=== PATIENT | male | born 1960 | race Caucasian/White ===

== ENCOUNTER 2018-03-25 09:18 | Day surgery (SDC) | payer OTHER ==
--- OUTSIDE RECORDS SUMMARY | 2018-03-25 09:28 | XMS REPORT | Clinical Summary ---
:1960 Author Organization [facility] Address [address] [place] [address] Care Team Providers Name Role Phone Murphy Pereira MD Primary Care Provider Allergies No Known Allergies Medications Medication Sig Dispensed Refills Start Date End Date Status ceFAZolin (ANCEF) Inject 50 mLs (2 g 0 03/24/2013 Active IVPB 2 g in dextrose total) intravenously 5% (D5W) 50 mL every 8 (eight) hours. olmesartan (BENICAR) Take 1 tablet (20 mg 30 tablet 11 03/24/2013 Active 20 MG total) by mouth tabletIndications: daily. hypertension Active Problems Problem Noted Date Aortic valve insufficiency, acquired 03/16/2013 Hypertensive heart disease without CHF 03/16/2013 History of hyperlipidemia 03/16/2013 Toxic effect of tobacco 03/16/2013 Septicemia 03/16/2013 Bacterial endocarditis 03/15/2013 Family History Medical History Relation Name Comments Heart disease Father Heart disease Mother Hypertension Mother Relation Name Status Comments Father Mother Social History Tobacco Use Types Packs/Day Years Used Date Current Every Day Smoker 1 30 Smokeless Tobacco: Current User Tobacco Cessation: Ready to Quit: Yes Comments: "Maybe ready to quit" Alcohol Use Drinks/Week oz/Week Comments Yes 10 Shots of liquor 6.0 Sex Assigned at Date Recorded Not on file Job Start Date Occupation Industry Not on file Not on file Not on file Travel History Travel Start Travel End No recent travel history available. Last Filed Vital Signs Not on file Plan of Treatment Health Maintenance Due Date Last Done Comments INFLUENZA VACCINE 11/22/2017 Implants Implanted Type Area Brushing Machine Operator Device Shelf Model / Identifier Expiration Serial / Lot Date Valve,Aortic Hammond Sm Cuff 25mm - [id number] Valves N/A: [employer] 01/26/2017 [id number] / Implanted: Qty: 1 on 03/16/2013 by Mert Houser MD [employer] [id number] / NONE Results Not on fileafter 03/24/2017 Insurance Payer Benefit Plan / Subscriber ID Type Phone Address Group BLUE CROSS/BLUE BCBS PPO POS EPO xxxxxxxxxxxx PPO [phone] [address] [place] [address] [phone] (Work) Advance Directives For more information, please contact:[place] [phone] [place], [place] [phone] Code Status Date Activated Date Inactivated Comments Code ONE 03/16/2013 5:28 PM 03/24/2013 3:10 PM All possible means of support , including: cardiac massage, mechanical ventilation, and defibrillation will be used to support life. Code ONE 03/15/2013 9:25 PM 03/16/2013 5:28 PM All possible means of support including;cardiac massage, mechanical ventilation, and defibrillation will be used to support life. Code ONE 03/15/2013 8:24 PM 03/15/2013 9:25 PM All possible means of support including;cardiac massage, mechanical ventilation, and defibrillation will be used to support life.
[2018-03-25] MEDS ORDERED: Ringers Lactate 1,000 ML IV ONE ×2 (09:43→11:52)
[2018-03-25] MEDS ORDERED: OXYMETAZOLINE HCL 0.05% 15ML NAS ONE ×4 (09:43→10:23)
[2018-03-25] MEDS ORDERED: CEFAZOLIN 2GM (PREMIX IV) 2 GM/50 ML BAG ONE ×2 (09:47→10:35)
[2018-03-25] MEDS ORDERED: FENTANYL CITR 100 MCG/2 ML ONE (10:02)
[2018-03-25] MEDS ORDERED: PROPOFOL 200 MG/20 ML VIAL IV ONE ×2 (10:03→11:47)
[2018-03-25] MEDS ORDERED: GLYCOPYRROLATE 0.2 MG/ML SYR ONE (10:04)
[2018-03-25] MEDS ORDERED: ROCURONIUM 50 MG/5 ML VIAL IV ONE (10:04)
[2018-03-25] MEDS ORDERED: LIDOCAINE 2% MPF 5 ML VIAL ONE (10:05)
[2018-03-25] MEDS ORDERED: DEXAMETHASONE 10 MG/ML VIAL ONE (10:05)
[2018-03-25] MEDS ORDERED: NEOSTIGMINE 1 MG/ML -10 ML VIAL ONE (10:07)
[2018-03-25] MEDS ORDERED: ONDANSETRON 4 MG/2 ML VIAL ONE (10:07)
[2018-03-25 10:15] LABS: Protime INR 1.05
[2018-03-25] MEDS ORDERED: NA CHLORIDE 0.9% 500 ML ONE (10:24)
[2018-03-25] MEDS ORDERED: NS 0.9% VIAL 10 ML ONE (10:29)
[2018-03-25] MEDS ORDERED: LIDOCAINE 1.5% W/EPI AMP 5 ML ONE (10:47)
[2018-03-25] MEDS: LIDOCAINE 1.5% W/EPI AMP 5 ML ONE ×2 (10:56→10:57)
[2018-03-25] MEDS ORDERED: EPHEDRINE SULF 50 MG/ML VIAL ONE (11:14)
--- NOTE | 2018-03-25 11:43 | P.BOP ---
Preoperative diagnosis: septal deviation, chronic nasal congestion Postoperative diagnosis: same Primary procedure: septoplasty Secondary procedure: inferior turb reduction Gravel Hauler: NONE,NONE Estimated blood loss: 15ml Specimen: none Anesthesia: General Complications: None Implants: Rivas splints Fluids & blood products: crystalloid 1000ml Transferred to: Recovery Room Condition: Good
[2018-03-25] MEDS ORDERED: ALBUTEROL INHALER 60 PUFF/8 GM IH ONE (11:51)
[2018-03-25] MEDS ORDERED: ALBUTEROL 2.5 MG/3 ML NEB SOL ONE (12:12)
[2018-03-25] MEDS: HYDROMORPHONE HCL 1 MG/ML INJ ONE ×2 (12:14→12:19)
[2018-03-25] MEDS: HYDROMORPHONE HCL 2 MG/ML inj ONE ×2 (12:26→12:34)
[2018-03-25] MEDS ORDERED: TRAMADOL HCL 50 MG TAB ONE (13:17)
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
== END 2018-03-25 13:40 | disposition home or self-care (01) ==
LOC: OR 09:18
PROVIDERS: ATTEND Otolaryngology
PROC: 09SM4ZZ Reposition Nasal Septum, Percutaneous Endoscopic Approach (ICD-10-PCS; principal; 2018-03-25 12:15)
DX: J34.2 Deviated nasal septum (principal); R09.81 Nasal congestion; Z72.0 Tobacco use; Z88.6 Allergy status to analgesic agent; Z80.9 Family history of malignant neoplasm, unspecified
CPT/HCPCS: 30520; 30930; 36415; 85610; 94640; J0690; J1100; J1170 ×2; J2001 ×2; J2405; J2704 ×2; J2710; J3010

== ENCOUNTER 2021-10-23 19:44 | Inpatient (IN) | payer OTHER ==
--- OUTSIDE RECORDS SUMMARY | 2021-10-23 19:47 | XMS REPORT | Continuity of Care Document ---
:1960 Author Organization [facility] t Address [address] [place] [address] Care Team Providers Name Role Phone LUDWIN MERRITT Primary Care Physician Unavailable ROBIN BANKS I. Attending Clinician Unavailable ADAN Attending Clinician Unavailable Carlos Alberto_Birgit Attending Clinician Unavailable A_Byrd Attending Clinician Unavailable REBECCA SOLIS Attending Clinician Unavailable ROBIN BANKS I. Admitting Clinician Unavailable ADAN Admitting Clinician Unavailable Ramana Admitting Clinician Unavailable A_Kenny Admitting Clinician Unavailable Payers Payer Name Policy Type Policy Number Effective Date Expiration Date S reyes MEDICARE A B [id number] 2017 00:00:00 BCBS PPO POS EPO [id number] 2013 2013 CHOICE 00:00:00 00:00:00 [place]IC[place] B-[place]: [id number] 2017 [employer] 00:00:00 Problems Condition Condition Condition Status Onset Resolution Last Treating Co mments Source Name Details Category Date Date Treatment Clinician Date Bilateral Bilateral Problem Active L[facility] nadeen cataracts Cataracts 4-19 Fami ly 00:00: Practic 00 e Hyperlipid Hyperlipid Problem Active [facility] emia emia 8-17 Family 00:00: Practic 00 e Macrocytos Macrocytos Problem Active [facility] is is 8-17 Family 00:00: Practic 00 e Microalbum Microalbum Problem Active [facility] inuria inuria 8-17 Family 00:00: Practic 00 e Thyroid Thyroid Problem Active [facility] function Function 8-17 Family tests Tests 00:00: Practic abnormal Abnormal 00 e Malignant Malignant Problem Active [facility]oco nadeen tumor of Tumor of 8-13 Family prostate Prostate 00:00: Practi c 00 e Type 2 Type 2 Problem Active [facility] diabetes Diabetes 8-13 Family mellitus Mellitus 00:00: Practi c 00 e Morbid Morbid Problem Active [facility] obesity Obesity 8-13 Family 00:00: Practic 00 e Foot Foot Problem Active [facility] callus Callus 8-13 Family 00:00: Practic 00 e History of History of Problem Active [facility] aortic Aortic 813 Family valve Valve 00:00: Practic replacemen Replacemen 00 e t t Testicular Testicular Disease Active [facility] abscess abscess [facility] Center Adenomatou Adenomatou Disease Active M ethodi s polyp of s polyp of 6-25 st descending descending 00:00: Ho spita colon colon 00 l Alcohol Alcohol Problem Active [place] dependence Dependence 09-28 da 00:00: Medical 00 Group Abscess of Abscess of Problem Active [facility] skin Skin 8 da AND/OR AND/OR 00:00: Medical subcutaneo Subcutaneo 00 Gr oup us tissue us Tissue Cigarette Cigarette Problem Active [facility] [place] smoker Smoker 8 da 00:00: Medical 00 Group History of History of Problem Active [facility] artificial Artificial 8 da heart Heart 00:00: Medical valve Valve 00 Group Aortic Aortic Disease Active [facility] valve valve 03[facility]16 [facility] insufficie insufficie 00:00: Me dical ncy, ncy, 00 Center acquired acquired Hypertensi Hypertensi Disease Active [facility] ve heart ve heart 03-16 [facility] disease disease 00:00: Medical without without 00 Center CHF CHF History of History of Disease Active [facility] hyperlipid hyperlipid 03-16 [facility] k[facility] emia emia 00:00: Medical 00 Center Toxic Toxic Disease Active [facility] effect of effect of 03-16 [facility] tobacco tobacco 00:00: Medical 00 [place] Septicemia Septicemia Disease Active [facility] 03[facility]16 [facility] 00:00: Medical 00 [place] Bacterial Bacterial Disease Active [facility]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 03-15 [facility] is is 00:00: Medical 00 Center Allergies, Adverse Reactions, Alerts Allergy Allergy Status Severity Reaction(s) Onset Inactive Treating Comm ents Source Name Type Date Date Clinician Hydrocod Propensi Active Itching Metho di one ty to 08-17 adverse 00:00: Hospita reaction 00 l s to drug Codeine Propensi Active Itching Method i ty to 07-23 adverse 00:00: Hospita reaction 00 l s to drug Hydrocod Allergy Active [facility] [place] one to Family substanc Practic e e NO KNOWN Allergy Active [facility] Family History Family Member Diagnosis Comments Start Date Stop Date Source Natural father Heart disease [facility] Natural mother Heart disease [facility] Natural mother Hypertension [facility] Social History Social Habit Start Date Stop Date Quantity Comments Source Alcohol intake 2019-08-31 2019-08-31 [facility]:00 of alcohol [facility] (finding) Cigarettes smoked 2013-03-15 2013-03-[address] [facility] current (pack per 00:00:00 00:00:00 Medical Center day) - Reported Cigarette 2013-03-15 2013-03-[address] [facility] pack-years 00:00:00 00:00:00 [facility] Tobacco use and 2013-03-15 2013-03-[address] [facility] exposure 00:00:00 00:00:00 [facility] Tobacco Comment 2013-03-15 2013-03-15 "Maybe ready to [facility] 00:00:00 00:00:00 quit" [facility] Sex Ass[birth year] At [birth year] [employer] 00:00:00 00:00:00 Hospital Smoking Status Start Date Stop Date Source Tobacco smoking consumption [facility] unknown Light Tobacco Smoker [facility] Current every day smoker 2013-03-15 00:00:00 [facility] Medications Ordered Filled Start Stop Current Ordering Indication Dosage Frequency Signature Comments Components Source Medication Medication Date Date Medication? Clinician (SIG) Name Name enoxaparin Yes Inject [facility] sodium 08-30 [facility]o [facility] (LOVENOX 18:39: usly. Medical SUBQ) [address] [place] [address] warfarin Yes Take by [facility] sodium - mouth. [facility] (WARFARIN 18:39: Medical ORAL) Center sertraline Yes Take by [facility] HCl (ZOLOFT 08-30 mouth. [facility]ukes ORAL) 18:39: Medical Center sertraline Yes 100mg QD Take 100 Me thodi (ZOLOFT) 6-[address] 100 MG 09:31: mouth Hospita tablet 33 daily. l warfarin Yes Q24H daily. Methodi (COUMADIN) 6- st 10 MG 09:30: Hospita tablet 27 l ceFAZolin Yes 2g Inject [address] (ANCEF) 1-31 mLs (2 g [facility] IVPB 2 g in 00:00: total) Medi dedire dextrose 5% 00 intravenou Ce nter (D5W) 50 mL sly every 8 (eight) hours. olmesartan Yes hypertensio 20mg QD Take [address] (BENICAR) 1-31 n tablet (20 Luke s 20 MG 00:00: mg total) Medical tablet 00 by mouth Center daily. warfarin 10 warfarin 10 No 1 Q1D warfarin [facility] mg tablet 1 mg tablet 1 1-15 10 mg Family tablet tablet 00:00: tablet 1 Pract ic every day every day 00 tablet e by oral by oral every day route. route. by oral route. paroxetine paroxetine No paroxetine [place] HCl HCl HCl [facility] quetiapine quetiapine No quetiapine [facility] warfarin 10 warfarin 10 No 1 Q1D warfarin [place] mg tablet mg tablet 10 mg da Take 1 Take 1 tablet Medical tablet tablet Take 1 Group every day every day tablet by oral by oral every day route. route. by oral route. Dexcom G6 Dexcom G6 No Dexcom G6 [place] Sensor Sensor Sensor Family device Take device Take device Practic 3 devices 3 devices Take 3 e every month every month devices by miscell. by miscell. every route for route for month by 30 days. 30 days. miscell. route for 30 days. erythromyci erythromyci No erythromyc [facility] n 5 mg/gram n 5 mg/gram in 5 F amily (0.5 %) eye (0.5 %) eye mg/gram Practic ointment ointment (0.5 %) e APPLY 1 APPLY 1 eye APPLICATION APPLICATION ointment TO EYELIDS TO EYELIDS APPLY 1 AT BEDTIME AT BEDTIME APPLICATIO FOR 1 WEEK FOR 1 WEEK N TO EYELIDS AT BEDTIME FOR 1 WEEK OneTouch OneTouch No 2strip( Q1D [facility] Verio test Verio test s) Verio test Family strips Take strips Take strips Practic 2 strips 2 strips Take 2 e every day every day strips by miscell. by miscell. every day route. route. by miscell. route. Serapine Serapine No Serapine [facility]en one daily one daily one daily Family Practic e Immunizations Ordered Immunization Filled Immunization Date Status Commen ts Source Name Name COVID-19, mRNA, COVID-19, mRNA, 2020-08-06 Completed [facility] Family LNP-S, PF, 100 LNP-S, PF, 100 00:00:00 Practi ce mcg/0.5 mL dose mcg/0.5 mL dose (Moderna) (Moderna) Vital Signs Vital Name Observation Time Observation Value Comments Source HEIGHT 2019-08-18 00:00:00 167.6 cm WEIGHT 2019-08-18 00:00:00 128.685 kg HEIGHT 2019-08-18 00:00:00 167.6 cm WEIGHT 2019-08-18 00:00:00 128.685 kg BP Diastolic 2021-06-10 00:00:00 84 mm[Hg] [facility] Height 2021-06-10 00:00:00 66 [in_i] [facility] BMI (Body Mass 2021-06-10 00:00:00 40.4 kg/m2 [facility] Family Index) Practice BP Systolic 2021-06-10 00:00:00 141 mm[Hg] [facility] Body Weight 2021-06-10 00:00:00 250 [lb_av] [facility] Practice BP Diastolic 2020-10-04 00:00:00 99 mm[Hg] [facility] Height 2020-10-04 00:00:00 66 [in_i] [facility] Practice BMI (Body Mass 2020-10-04 00:00:00 41.2 kg/m2 [facility] Family Index) Practice BP Systolic 2020-10-04 00:00:00 150 mm[Hg] [facility] Body Weight 2020-10-04 00:00:00 255 [lb_av] [facility] HEIGHT 2019-08-18 00:00:00 167.6 cm WEIGHT 2019-08-18 00:00:00 128.685 kg BP Diastolic 2018-05-10 00:00:00 84 mm[Hg] [facility] Height 2018-05-10 00:00:00 66 [in_i] [facility] BMI (Body Mass 2018-05-10 00:00:00 39.6 kg/m2 [facility] 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 Plan of Care Planned Activity Planned Date Details Comments Source Future Scheduled 2023-08-[address] [facility] Test 00:00:00 (combo) [code = CT Medical C enter Colonography (combo)] Future Scheduled 2023-08-[address] [facility] Test 00:00:00 malignant neoplasm of Medica l Center colon (procedure) [code = 527400132] Future Scheduled 2021-10-23 INFLUENZA VACCINE (#1) [facility] Test 00:00:00 [code = INFLUENZA Medical Ce nter VACCINE (#1)] Future Scheduled 2021-10-18 COVID-19 VACCINE (#1) [facility] Test 06:47:21 [code = COVID-19 VACCINE (#1)] Future Scheduled 2021-10-18 Pneumococcal Vaccine: [facility] Test 06:47:21 Pediatrics (0 to 5 Years) and At-Risk Patients (6 to 64 Years) (1 - PCV) [code = Pneumococcal Vaccine: Pediatrics (0 to 5 Years) and At-Risk Patients (6 to 64 Years) (1 - PCV)] Future Scheduled 2021-10-18 Hepatitis C screening [facility] Test 06:47:21 (procedure) [code = 662992302] Future Scheduled 2021-10-18 COLONOSCOPY SCREENING [facility] Test 06:47:21 [code = COLONOSCOPY SCREENING] Future Scheduled 2021-10-18 SHINGLES VACCINES (1 Met [facility] Test 06:47:21 of 2) [code = SHINGLES VACCINES (1 of 2)] Future Scheduled 2021-10-18 INFLUENZA VACCINE Method [facility] Test 06:47:21 [code = INFLUENZA VACCINE] Future Scheduled 2021-10-18 HEPATITIS B VACCINES Met [facility] Test 06:47:21 (1 of 3 - 3-dose series) [code = HEPATITIS B VACCINES (1 of 3 - 3-dose series)] Diagnostic Test 2021-06-10 hemoglobin A1C, [facility] F amily Pending 00:00:00 fingerstick [code = Practice hemoglobin A1C, fingerstick] Diagnostic Test 2021-06-10 glucose, fingerstick, [facility] Family Pending 00:00:00 blood [code = glucose, Pract ice fingerstick, blood] Future Scheduled 2021-02-[address] [facility] Test 00:00:00 (12+) [code = Medical Center DEPRESSION SCREENING (12+)] Future Scheduled 2018-12-[address] [facility] [facility] Test 00:00:00 WELLNESS (YEAR 2 or Medical Center FIRST YEAR if no IPPE) [code = MEDICARE ANNUAL WELLNESS (YEAR 2 or FIRST YEAR if no IPPE)] Future Scheduled 2016-03-[address] [facility] Test 00:00:00 (procedure) [code = Medical Center 92768919] Future Scheduled 2009-10-09 SHINGLES VACCINES ([address] [facility] Test 00:00:00 of 2) [code = SHINGLES Medic al Center VACCINES (1 of 2)] Future Scheduled 1978-10-09 DTAP/TDAP/TD VACCINES [facility] Test 00:00:00 (1 - Tdap) [code = Medical C enter DTAP/TDAP/TD VACCINES (1 - Tdap)] Future Scheduled 1977-10-09 HEPATITIS C SCREENING [facility] Test 00:00:00 [code = HEPATITIS C Medical Center SCREENING] Future Scheduled 1965-10-[address] [facility] Test 00:00:00 0-64 YRS (1 - PCV) Medical C enter [code = PNEUMOCOCCAL VACCINE 0-64 YRS (1 - PCV)] Future Scheduled 1960-04-11 COVID-19 VACCINE (#1) [facility] Test 00:00:00 [code = COVID-[address] VACCINE (#1)] Future Scheduled [address] [facility] Test 00:00:00 malignant neoplasm of Medica l Center colon (procedure) [code = 545064680] Future Scheduled [address] Test 00:00:00 malignant neoplasm of Medica l Center colon (procedure) [code = 618326109] Future Scheduled [address] Test 00:00:00 malignant neoplasm of Medica l Center colon (procedure) [code = 214514945] Future Scheduled 1960 Sigmoidoscopy [code = [facility] Test 00:00:00 Sigmoidoscopy] Medical Roseann wilson Future Appointment 2021-12-10 Malik Carcamo, [address] [facility] 00:00:00 Chemo Otto; Practice [address], [place] [address] Encounters Start End Encounter Admission Attending Care Care Encounter Source Date/Time Date/Time Type Type Clinicians Facility Department ID 2020-11-26 [facility] Surgery [id number] [facility] 23:10:37 ROBIN 2020-11-26 [facility] Surgery [id number] [facility] 22:00:01 ROBIN 2020-11-26 [facility] Surgery [id number] [facility] 20:55:00 ROBIN 2021-09-23 2021-09-23 Outpatient TERELLE[facility]LANDEN [facility] [address] [place] 00:00:00 00:00:00 N 0802 da [facility] Outre h Program 2021-06-23 2021-06-23 Outpatient Carlos Alberto_Birgit VFP [facility] [id number] [facility] 06:24:00 06:24:00 [id number] Family Practic e 2021-06-10 2021-06-10 Outpatient Carlos Alberto_Birgit VFP [facility] [id number] 20 [facility] 02:32:00 02:32:00 [id number] Family Practic e 2021-06-10 2021-06-10 Malik VFP [place] - [id number] [facility] 00:00:00 00:00:00 [facility] Family CarcamoYogi MD: [id number] SHAUNGETACHEW_Matias marques [facility], [address], [place] [address] , Ph. 2021-06-05 2021-06-05 Outpatient Daniel_T VFP VFP [id number] [address] [place] [address] 11:43:00 11:43:00 [id number] Family Practic e 2021-01-15 2021-01-15 Outpatient Daniel_T VFP VFP [id number] [address] [place] [address] 02:31:00 02:31:00 [id number] Family Practic e 2020-12-05 2020-12-05 Outpatient Daniel_T VFP VFP [id number] [address] [place] [address] 08:12:00 08:12:00 [id number] Family Practic e 2020-10-08 2020-10-08 Outpatient Daniel_T VFP VFP [id number] [address] [place] [address] 10:59:00 10:59:00 [id number] Family Practic e 2020-10-04 2020-10-04 Outpatient Daniel_T VFP VFP [id number] [address] [place] [address] 01:31:00 01:31:00 [id number] Family Practic e 2020-10-04 2020-10-04 Malik VFP [place] - [id number] V [facility] 00:00:00 00:00:00 [facility] Family CarcamoYogi MD: [id number] FIDE_Matias marques [facility], [address], [place] [address] , Ph. 2020-10-02 2020-10-02 Outpatient Daniel_T VFP VFP [id number] [address] [place] [address] 04:48:00 04:48:00 [id number] Family Practic e 2020-09-30 2020-09-30 Outpatient Daniel_T VFP VFP [id number] [address] [place] [address] 03:08:00 03:08:00 [id number] Family Practic e 2020-01-10 2020-01-10 [id number] [place] 02:27:00 02:27:00 [id number] 2019-08-30 2019-08-30 Outpatient SLE SLE [id number] [facility] 00:00:00 00:00:00 2019-08-17 2019-08-17 Outpatient IRMA, [facility] [id number] [facility] 00:00:00 00:00:[address] ALI [address] 2018-05-10 2018-05-10 Jose Armando [facility] [place] - [id number] M at[facility]eve 00:00:00 00:00:00 Orlando Palumbo MD: Medical Medica [address], General [address], [place] [address] , Ph. [phone] Results Test Description Test Time Test Comments Results Result Comments Source Hemoglobin A1c measurement device panel 2021-06-10 13:43:21 Test Item Value Reference Range Interpretation Comme nts Hemoglobin A1C Fingerstick: (test code = Hemoglobin A1C Fingerstick :) 6.1 [facility] [id number] 13:43:21 Test Item Value Reference Range Interpretation Comments Hemoglobin A1C Fingerstick: (test code 6.1 = Hemoglobin A1C Fingerstick:) [facility]/volume] in Capillary [id number] 13:40:40 Test Item Value Reference Range Interpretation Comments Blood Glucose: mg/dl (test code = Blood 200 Glucose: mg/dl) [facility]/volume] in Capillary [id number] 13:40:40 Test Item Value Reference Range Interpretation Comments Blood Glucose: mg/dl (test code = Blood 200 Glucose: mg/dl) [facility] [id number] 18:22:00 Test Item Value Reference Range Interpretation Comments CULTURE (BEAKER) (test No anaerobes isolated code = 1095) TISSUE [id number] 12:30:00Surgical Pathology Report Case: [id number] Authorizing Provider: Robin Banks MD Collected: 08/31/2019 04:29 PM Ordering Location: [facility] Received: 09/01/2019 08:43 AM SERVICES Pathologist: Lizandro Chapman MD Specimen: Scrotum, LEFT SCROTAL ABCESS TRACT A. SCROTUM, LEFT ABSCESS TRACT, EXCISION: - INFLAMED GRANULATION TISSUE AND ORGANIZING ABSCESS - NEGATIVE FOR MALIGNANCY Signing Pathologist Direct Phone Line: [phone] signed by Lizandro Chapman MD on 09/04/2019 at 12:30 [id number] ScrotumReceived in formalin labeled with the patient's name, accession number and "left scrotal abscess tract" is a 2.9 x 2.0 x 0.5 cm portion of dusky saavedra-pink, previously disrupted skin and soft tissue. Sectioning reveals a 1.3 x 0.4 cm possible abscess tract. Rum Processing Operator sections are submitted in A1.SHADIA Jordan (ASCP)cmPerformed.SURGICALLY OBTAINED CULTURE + GRAM [id number] 13:20:00 Test Item Value Reference Range Interpretation Comments CULTURE (BEAKER) A 2+ Viridans (test code = Streptococcus 1095) GRAM STAIN <1+ White blood RESULT (BEAKER) cells seen (test code = 1123) GRAM STAIN No organisms seen RESULT (BEAKER) (test code = 72782) BASIC METABOLIC [id number] 12:04:00 Test Item Value Reference Range Interpretation Comments SODIUM (BEAKER) 139 meq/L 136-145 (test code = 381) POTASSIUM (BEAKER) 4.1 meq/L 3.5-5.1 (test code = 379) CHLORIDE (BEAKER) 104 meq/L 98-107 (test code = 382) CO2 (BEAKER) (test 26 meq/L 22-29 code = 355) BLOOD UREA NITROGEN 10 mg/dL 7-21 (BEAKER) (test code = 354) CREATININE (BEAKER) 0.79 mg/dL 0.57-1.25 (test code = 358) GLUCOSE RANDOM 140 mg/dL 70-105 H (BEAKER) (test code = 652) CALCIUM (BEAKER) 9.4 mg/dL 8.4-10.2 (test code = 697) EGFR (BEAKER) (test 100 mL/min/1.73 ESTIM ATED GFR IS code = 1092) sq m NOT ACCURATE CREATININE CLEARANCE IN PREDICTING GLOMERULAR FILTRATION RATE . ESTIMATED GFR I S NOT APPLICABLE FOR DIALYSIS PATIEN TS. Client Evaluator ID - [id number] TIME/[id number] 11:55:00 Test Item Value Reference Range Interpretation Comments PROTIME (BEAKER) (test code = 13.5 seconds 11.9-14.2 759) INR (BEAKER) (test code = 370) 1.1 <=5.9 Effective 07/20/2018: PT Reference Range ChangeNew: 11.9-14.2 Previous: 11.7- 14.7RECOMMENDED COUMADIN/WARFARIN INR THERAPY RANGESSTANDARD DOSE: 2.0-3.0 Includes: PROPHYLAXIS for venous thrombosis, systemic embolization; TREATMENT for venous thrombosis and/or pulmonary embolus.HIGH RISK: Target INR is 2.5-3.5 for patients wiht mechanical heart valves.[id number] 11:48:00 Test Item Value Reference Range Interpretation Comments HEMOGLOBIN (BEAKER) (test code = 14.5 GM/DL 13.7-17.5 410) Client Evaluator ID - [id number], VIRTUAL COLONOSCOPY, DIAGNOSTIC WITHOUT [id number] 14:15:00FINAL REPORT INDICATION:Colon cancer screening.History of benign neoplasm (tubular adenoma) of the transverse colon and descending colon. TECHNIQUE:CT exam of the colon was performed after insufflation with CO2 via rectal tube. Supine and prone imaging was acquired. Coronal and sagittal reformats were made and reviewed. COMPARISON:None. FINDINGS:The proximal sigmoid colon is collapsed on prone imaging but mildly distended on supine imaging. The transverse colon is collapsed on prone imaging but reasonably distended on supine imaging. Splenic flexure is partially collapsed on supine imaging but reasonably distended on prone imaging. No colonic polyp or mass is demonstrated. Diverticuli of the left colon and proximal sigmoid colon noted. Liver, gallbladder, pancreas, spleen, adrenal glands, kidneys, bladder, prostate are unremarkable. No upper abdominal, retroperitoneal, or pelvic lymphadenopathy is demonstrated. Patient is status post ventral hernia repair with mesh without recurrence. There is atherosclerosis of the abdominal aorta and iliac arteries without aneurysm. No suspicious osseous lesion is demonstrated. There is lower lumbar facet arthropathy severe at L5-S1. IMPRESSION:Suboptimal distention of some of the colon segments. Nonetheless, exam deemed adequate for screening purposes. No suspicious colonic polyp or mass demonstrated. C-RADS category 1. Routine colon cancer screening recommended. Signed: Girish Roger Verified Date/Time: 08/08/2018 14:15:06 Reading Location: [facility] Diagnostic Imaging Reading Room - [place] [address]
--- NOTE | 2021-10-23 21:14 | RAD REPORT ---
EXAM DESCRIPTION: RAD - Chest Single View - 10/23/2021 8:58 pm CLINICAL HISTORY: COUGH Chest pain. COMPARISON: CHEST SINGLE VIEW dated 02/24/2014 FINDINGS: Portable technique limits examination quality. Mild interstitial pulmonary edema seen. The heart is normal in size. Sternotomy wires present. IMPRESSION: Mild CHF.
--- NOTE | 2021-10-23 21:31 | EDPHYS ---
Physician Documentation [facility] Name: Mustapha Carcamo Age: 61 yrs Sex: Male : 1960 Arrival Date: 10/23/2021 Time: 19:48 Bed 13 Private MD: MARY Physician Chandra Tovar HPI: 10/23 21:23 This 61 yrs old Male presents to ER via Ambulatory with complaints of Post jaylon Surgical Bleeding. 21:23 The patient presents with scrotal pain, swelling, tenderness, that is moderate. Onset: jaylon The symptoms/episode began/occurred 2 day(s) ago. Modifying factors: The symptoms are alleviated by nothing, the symptoms are aggravated by nothing. Associated signs and symptoms: The patient has no apparent associated signs or symptoms. Severity of symptoms: At their worst the symptoms were moderate, in the emergency department the symptoms are unchanged. The patient has not experienced similar symptoms in the past. Historical: - Allergies: 20:05 No Known Allergies; ll3 - Home Meds: 20:05 warfarin 10 mg Oral tab 1 tab once daily [Active]; ll3 - PSHx: 20:05 Mechanical Heart Valve; ll3 - Immunization history:: Client reports receiving the 2nd dose of the Covid vaccine. - Social history:: Smoking status: Patient reports the use of cigarette tobacco products, smokes one pack cigarettes per day. - Family history:: not pertinent. ROS: 21:23 Constitutional: Negative for fever, chills, and weight loss, Eyes: Negative for injury, jaylon pain, redness, and discharge, ENT: Negative for injury, pain, and discharge, Neck: Negative for injury, pain, and swelling, Cardiovascular: Negative for chest pain, palpitations, and edema, Respiratory: Negative for shortness of breath, cough, wheezing, and pleuritic chest pain, Abdomen/GI: Negative for abdominal pain, nausea, vomiting, diarrhea, and constipation, Back: Negative for injury and pain, MS/Extremity: Negative for injury and deformity, Skin: Negative for injury, rash, and discoloration, Neuro: Negative for headache, weakness, numbness, tingling, and seizure, Psych: Negative for depression, anxiety, suicide ideation, homicidal ideation, and hallucinations, Allergy/Immunology: Negative for hives, rash, and allergies, Endocrine: Negative for neck swelling, polydipsia, polyuria, polyphagia, and marked weight changes, Hematologic/Lymphatic: Negative for swollen nodes, abnormal bleeding, and unusual bruising. 21:23 : Positive for testicular pain of the right testicle. Exam: 21:23 Constitutional: This is a well developed, well nourished patient who is awake, alert, jaylon and in no acute distress. Head/Face: Normocephalic, atraumatic. Eyes: Pupils equal round and reactive to light, extra-ocular motions intact. Lids and lashes normal. Conjunctiva and sclera are non-icteric and not injected. Cornea within normal limits. Periorbital areas with no swelling, redness, or edema. ENT: Nares patent. No nasal discharge, no septal abnormalities noted. Tympanic membranes are normal and external auditory canals are clear. Oropharynx with no redness, swelling, or masses, exudates, or evidence of obstruction, uvula midline. Mucous membranes moist. Neck: Trachea midline, no thyromegaly or masses palpated, and no cervical lymphadenopathy. Supple, full range of motion without nuchal rigidity, or vertebral point tenderness. No Meningismus. Chest/axilla: Normal chest wall appearance and motion. Nontender with no deformity. No lesions are appreciated. Cardiovascular: Regular rate and rhythm with a normal S1 and S2. No gallops, murmurs, or rubs. Normal PMI, no JVD. No pulse deficits. Respiratory: Lungs have equal breath sounds bilaterally, clear to auscultation and percussion. No rales, rhonchi or wheezes noted. No increased work of breathing, no retractions or nasal flaring. Abdomen/GI: Soft, non-tender, with normal bowel sounds. No distension or tympany. No guarding or rebound. No evidence of tenderness throughout. Back: No spinal tenderness. No costovertebral tenderness. Full range of motion. Skin: Warm, dry with normal turgor. Normal color with no rashes, no lesions, and no evidence of cellulitis. MS/ Extremity: Pulses equal, no cyanosis. Neurovascular intact. Full, normal range of motion. Neuro: Awake and alert, GCS 15, oriented to person, place, time, and situation. Cranial nerves II-XII grossly intact. Motor strength 5/5 in all extremities. Sensory grossly intact. Cerebellar exam normal. Normal gait. Psych: Awake, alert, with orientation to person, place and time. Behavior, mood, and affect are within normal limits. 21:23 : CVA tenderness, is absent, Male external genitalia: swelling, tenderness, of the right testicle is noted. 21:23 Skin: abscess, that is small, approximately 2 cm(s), that is moderate sized, cellulitis, that is minimal, induration, that is mild is noted, that is moderate is noted, injury, is not appreciated, lesion(s), are not present. 21:23 Neuro: Orientation: is normal, appropriate for stated age, no acute changes, to person, place, time \T\ situation. 22:27 ECG was reviewed by the Attending Physician. [facility] Vital Signs: 20:02 BP 120 / 74; Pulse 104; Resp 18; Temp 98.4(O); Pulse Ox 91% on R/A; Weight 113.4 kg ll3 (R); Height 5 ft. 6 in. (167.64 cm) (R); Pain 0/10; 21:30 BP 124 / 70; Pulse 98; Resp 20; Pulse Ox 92% on R/A; ll3 22:30 BP 111 / 64; Pulse 96; Resp 20; Pulse Ox 92% on R/A; ll3 23:03 Weight 109.91 kg (M); ll3 23:15 BP 136 / 80; Pulse 96; Resp 21; Pulse Ox 92% on R/A; ll3 23:03 Body Mass Index 39.11 (109.91 kg, 167.64 cm) ll3 MDM: 19:57 Patient medically screened. [facility] 21:27 Differential diagnosis: UTI, urinary retention. Data reviewed: vital signs, nurses [facility] notes, lab test result(s), EKG, radiologic studies, plain films, ultrasound. Data interpreted: pvc monitor: rate is 104 beats/min, rhythm is regular, Pulse oximetry: on room air is 91 %. Test interpretation: by ED physician or midlevel provider: ECG, plain radiologic studies. Counseling: I had a detailed discussion with the patient and/or guardian regarding: the historical points, exam findings, and any diagnostic results supporting the discharge/admit diagnosis, lab results, radiology results, the need for further work-up and treatment in the hospital. Physician consultation: Edmund Reyna MD and will see patient in inpatient room, tomorrow. 10/23 20:34 Order name: Basic Metabolic Panel; Complete Time: 22:20 [facility] 10/23 20:34 Order name: CBC with Diff; Complete Time: 21:53 [facility] 10/23 20:34 Order name: LFT's; Complete Time: 22:20 [facility] 10/23 20:34 Order name: Magnesium; Complete Time: 22:20 [facility] 10/23 20:34 Order name: NT PRO-BNP; Complete Time: 22:20 [facility] 10/23 20:34 Order name: PT-INR; Complete Time: 21:46 [facility] 10/23 20:34 Order name: Troponin HS; Complete Time: 22:20 [facility] 10/23 20:34 Order name: XRAY Chest (1 view); Complete Time: 21:46 [facility] 10/23 20:34 Order name: Blood Culture Adult (2) [facility] 10/23 20:34 Order name: Lactate; Complete Time: 22:35 [facility] 10/23 20:34 Order name: Wound Culture [facility] 10/23 20:34 Order name: US Scrotum Testicles; Complete Time: 21:59 [facility] 10/23 22:37 Order name: Ptt, Activated; Complete Time: 23:14 [facility] 10/24 00:11 Order name: SARS-COV-2 Antigen Rapid 10/23 20:34 Order name: EKG; Complete Time: 20:35 [facility] 10/23 20:34 Order name: Cardiac monitoring; Complete Time: 22:20 [facility] 10/23 20:34 Order name: EKG - Nurse/Tech; Complete Time: 22:20 [facility] 10/23 20:34 Order name: IV Saline Lock; Complete Time: 21:24 [facility] 10/23 20:34 Order name: Labs collected and sent; Complete Time: 21:24 [facility] 10/23 20:34 Order name: O2 Per Protocol; Complete Time: 20:44 [facility] 10/23 20:34 Order name: O2 Sat Monitoring; Complete Time: 20:44 [facility] EC:27 Rate is 101 beats/min. Rhythm is irregular. QRS [place] is Normal. [place] interval is normal. jaylon QRS interval is normal. QT interval is normal. No Q waves. T waves are Normal. No ST changes noted. Clinical impression: Atrial Fibrillation and No evidence of ischemia. Administered Medications: 22:00 Discontinued: NS 0.9% 500 ml IV at bolus once jaylon 21:53 Drug: NS 0.9% 500 ml Route: IV; Rate: bolus; Site: right antecubital; ll3 22:07 Follow up: Response: No adverse reaction; IV Status: Order to discontinue infusion; IV ll3 Intake: 100ml 21:53 Drug: Flagyl (metroNIDAZOLE) 500 mg Volume: 100 ml; Route: IVPB; Rate: 200 ml/hr; ll3 Infused Over: 30 mins; Site: right antecubital; 22:28 Follow up: Response: No adverse reaction; IV Status: Completed infusion; IV Intake: ll3 100ml 22:00 Not Given (Duplicate Order): NS 0.9% 1000 ml IV at 125 ml/hr continuous jaylon 22:25 Drug: Lasix (furosemide) 40 mg Route: IVP; Site: right antecubital; ll3 23:58 Follow up: Response: No adverse reaction ll3 22:28 Drug: vancoMYCIN 1.5 grams Route: IVPB; Rate: calculated rate; Site: right antecubital; ll3 23:58 Follow up: Response: No adverse reaction; IV Status: Completed infusion; IV Intake: ll3 250ml 22:36 CANCELLED (Duplicate Order): Lovenox (enoxaparin) 100 mg Sub-Q once jaylon 23:00 Drug: Potassium Chloride 40 mEq Route: PO; ll3 23:58 Follow up: Response: No adverse reaction ll3 23:34 Drug: Heparin ([place] Drip) 12 units/kg/hr - (HEParin 87397 units, D5W 500 ml) ll3 {Co-Signature: lg3 (Mary Moseley RN).} Route: IV; Rate: calculated rate; Site: left hand; 23:35 Drug: Heparin ([place]-Bolus No thrombolytic) - HEParin 60 units/kg {Co-Signature: lg3 ll3 (Mary Moseley RN).} Route: IVP; Site: left hand; 23:58 Follow up: Response: No adverse reaction ll3 23:57 Drug: levofloxacin 750 mg Volume: 150 ml; Route: IVPB; Infused Over: 90 mins; Site: ll3 right antecubital; 23:57 Drug: Potassium Chloride 20 mEq Route: IV; Rate: calculated rate; Site: right ll3 antecubital; 10/24 00:18 Drug: Nicoderm CQ Patch 21 mg/24 hr 21 mg Route: Transdermal; Site: affected area; ll3 Disposition Summary: 10/23/21 21:30 Hospitalization Ordered Hospitalization Status: Inpatient Admission jaylon Condition: Fair jaylon Problem: new jaylon Symptoms: have improved jaylon Bed/Room Type: Standard jaylon Provider: Chad Garcia(10/23/21 22:30) la1 Location: Intensive Care Unit(10/24/21 00:49) cg Room Assignment: 2-(10/24/21 00:49) cg Diagnosis - Cutaneous abscess of other sites - right scrotal jaylon - Cellulitis of groin - scrotal, mons jaylon - Obesity, unspecified jaylon - Hypokalemia jaylon - Presence of prosthetic heart valve - mechanical jaylon - Unspecified combined systolic (congestive) and diastolic (congestive) heart failure jaylon Forms: - Medication Reconciliation Form jaylon - SBAR form jaylon Signatures: Dispatcher [employer] EDMS Chandra Tovar MD MD cha Attema, Lee, KILN CAR REPAIRER-C KILN CAR REPAIRER-Cla1 Jennifer Rabago RN RN Bowen Jenkins RN RN ll3 Mary Moseley RN lg3 Corrections: (The following items were deleted from the chart) 10/23 22:30 21:30 Augie Jackson cha la1 22:36 22:34 Lovenox (enoxaparin) 100 mg Sub-Q once ordered. jaylon jaylon 10/24 00:49 10/23 21:30 Telemetry/MedSurg (Inpatient) jaylon cg 10/24 00:49 10/23 21:30 jaylon cg
--- NOTE | 2021-10-23 21:31 | ER ---
Nurse's Notes [facility] Name: Mustapha Carcamo Age: 61 yrs Sex: Male : 1960 Arrival Date: 10/23/2021 Time: 19:48 Bed 13 Private MD: Diagnosis: Cutaneous abscess of other sites-right scrotal;Cellulitis of groin-scrotal, mons;Obesity, unspecified;Hypokalemia;Presence of prosthetic heart valve-mechanical ;Unspecified combined systolic (congestive) and diastolic (congestive) heart failure Presentation: 10/23 20:02 Chief complaint: Patient states: States had surgery for an abscess on scrotum ll3 yesterday, today the scrotum started bleeding "a lot", c/o itchy eyes, denies any pain at this time. Coronavirus screen: Vaccine status: Patient reports receiving the 2nd dose of the covid vaccine. At this time, the client does not indicate any symptoms associated with coronavirus-19. Ebola Screen: No symptoms or risks identified at this time. Initial Sepsis Screen: Does the patient meet any 2 criteria? No. Patient's initial sepsis screen is negative. Does the patient have a suspected source of infection? No. Patient's initial sepsis screen is negative. Risk Assessment: Do you want to hurt yourself or someone else? Patient reports no desire to harm self or others. Onset of symptoms was October 23, 2021. 20:02 Method Of Arrival: Ambulatory ll3 20:02 Acuity: JACK 3 ll3 Triage Assessment: 20:05 General: Appears uncomfortable, Behavior is calm, cooperative. Pain: Denies pain. ll3 Neuro: Level of Consciousness is awake, alert, obeys commands, Oriented to person, place, time, situation. Respiratory: Respiratory effort is even, unlabored, Respiratory pattern is regular, symmetrical. Derm: Abscess located on groin has purulent drainage, Reports Bleeding "a lot" since SX yesterday on abscess. Historical: - Allergies: 20:05 No Known Allergies; ll3 - Home Meds: 20:05 warfarin 10 mg Oral tab 1 tab once daily [Active]; ll3 - PSHx: 20:05 Mechanical Heart Valve; ll3 - Immunization history:: Client reports receiving the 2nd dose of the Covid vaccine. - Social history:: Smoking status: Patient reports the use of cigarette tobacco products, smokes one pack cigarettes per day. - Family history:: not pertinent. Assessment: 20:08 General: See triage assessment. ll3 Vital Signs: 20:02 BP 120 / 74; Pulse 104; Resp 18; Temp 98.4(O); Pulse Ox 91% on R/A; Weight 113.4 kg ll3 (R); Height 5 ft. 6 in. (167.64 cm) (R); Pain 0/10; 21:30 BP 124 / 70; Pulse 98; Resp 20; Pulse Ox 92% on R/A; ll3 22:30 BP 111 / 64; Pulse 96; Resp 20; Pulse Ox 92% on R/A; ll3 23:03 Weight 109.91 kg (M); ll3 23:15 BP 136 / 80; Pulse 96; Resp 21; Pulse Ox 92% on R/A; ll3 23:03 Body Mass Index 39.11 (109.91 kg, 167.64 cm) ll3 ED Course: 19:48 Patient arrived in ED. wm 19:57 Chandra Tovar MD is Attending Physician. jaylon 20:02 Bowen Jenkins RN is Primary Nurse. ll3 20:05 Triage completed. ll3 20:05 Arm band placed on Patient placed in an exam room, on a stretcher, on pulse oximetry. ll3 21:00 XRAY Chest (1 view) In Process Unspecified. EDMS 21:29 Augie Jackson MD is Hospitalizing Provider. jaylon 21:45 US Scrotum Testicles In Process Unspecified. EDMS 22:30 Chad Garcia MD is Hospitalizing Provider. la1 23:13 Initial lab(s) drawn, by md, sent to lab. First set of blood cultures drawn Second set ll3 of blood cultures drawn. Inserted saline lock: 22 gauge in right antecubital area, using aseptic technique. Blood collected. 23:13 Inserted saline lock: 22 gauge in left hand, using aseptic technique. Blood collected. ll3 Administered Medications: 22:00 Discontinued: NS 0.9% 500 ml IV at bolus once jaylon 21:53 Drug: NS 0.9% 500 ml Route: IV; Rate: bolus; Site: right antecubital; ll3 22:07 Follow up: Response: No adverse reaction; IV Status: Order to discontinue infusion; IV ll3 Intake: 100ml 21:53 Drug: Flagyl (metroNIDAZOLE) 500 mg Volume: 100 ml; Route: IVPB; Rate: 200 ml/hr; ll3 Infused Over: 30 mins; Site: right antecubital; 22:28 Follow up: Response: No adverse reaction; IV Status: Completed infusion; IV Intake: ll3 100ml 22:00 Not Given (Duplicate Order): NS 0.9% 1000 ml IV at 125 ml/hr continuous jaylon 22:25 Drug: Lasix (furosemide) 40 mg Route: IVP; Site: right antecubital; ll3 23:58 Follow up: Response: No adverse reaction ll3 22:28 Drug: vancoMYCIN 1.5 grams Route: IVPB; Rate: calculated rate; Site: right antecubital; ll3 23:58 Follow up: Response: No adverse reaction; IV Status: Completed infusion; IV Intake: ll3 250ml 22:36 CANCELLED (Duplicate Order): Lovenox (enoxaparin) 100 mg Sub-Q once jaylon 23:00 Drug: Potassium Chloride 40 mEq Route: PO; ll3 23:58 Follow up: Response: No adverse reaction ll3 23:34 Drug: Heparin ([place] Drip) 12 units/kg/hr - (HEParin 85847 units, D5W 500 ml) ll3 {Co-Signature: lg3 (Mary Moseley RN).} Route: IV; Rate: calculated rate; Site: left hand; 23:35 Drug: Heparin ([place]-Bolus No thrombolytic) - HEParin 60 units/kg {Co-Signature: lg3 ll3 (Mary Moseley RN).} Route: IVP; Site: left hand; 23:58 Follow up: Response: No adverse reaction ll3 23:57 Drug: levofloxacin 750 mg Volume: 150 ml; Route: IVPB; Infused Over: 90 mins; Site: ll3 right antecubital; 23:57 Drug: Potassium Chloride 20 mEq Route: IV; Rate: calculated rate; Site: right ll3 antecubital; 10/24 00:18 Drug: Nicoderm CQ Patch 21 mg/24 hr 21 mg Route: Transdermal; Site: affected area; ll3 Intake: 10/23 22:07 IV: 100ml; Total: 100ml. ll3 22:28 IV: 100ml; Total: 200ml. ll3 23:58 IV: 250ml; Total: 450ml. ll3 Outcome: 21:30 Decision to Hospitalize by Provider. jaylon 10/24 01:32 Patient left the ED. tw5 Signatures: Dispatcher [employer] EDChandra Gudino MD MD cha Attema, Lee, CUTTING TORCH OPERATOR-C CUTTING TORCH OPERATOR-Cla1 Karina Rhodes Tiffany tw5 Bowen Jenkins RN RN ll3 Mary Moseley RN lg3
[2021-10-23 21:39] LABS: Absolute Lymphocytes (CBC) 1.4 K/uL (0.7-4.9); Hematocrit 42.5 % (39.6-49.0); Lymphocytes % 18.5 % (15.3-44.8); MCV 104.7 fL (80-100); MPV 8.2 fL (7.6-11.3); RBC Red Blood Cell Count 4.06 M/uL (4.33-5.43)
[2021-10-23 21:41] LABS: Protime INR 1.51
[2021-10-23] MEDS ORDERED: NA CHLORIDE 0.9% 250 ML ONE (21:52)
[2021-10-23] MEDS ORDERED: VANCOMYCIN 1 GM/VIAL ONE (21:52)
[2021-10-23] MEDS ORDERED: VANCOMYCIN 500 MG/VIAL ONE (21:52)
[2021-10-23] MEDS ORDERED: NA CHLORIDE 0.9% 500 ML ONE (21:52)
[2021-10-23] MEDS ORDERED: NA CHLORIDE 0.9% 1,000 ML ONE (21:52)
[2021-10-23] MEDS ORDERED: METRONIDAZOLE 500mg IVPB 500 MG/100 ML BAG IV ONE (21:53)
[2021-10-23] MEDS ORDERED: Levofloxacin 750mg IV 750 MG/150 ML BAG IV ONE (21:53)
--- NOTE | 2021-10-23 21:55 | RAD REPORT ---
EXAM DESCRIPTION: US - Scrotum Testicles - 10/23/2021 9:43 pm CLINICAL HISTORY: SWELLING Pain and swelling COMPARISON: No comparisons FINDINGS: The right testicle 3.7 x 2.0 cm. No intratesticular masses or evidence of testicular torsi on. The left testicle 3.2 x 2.9 cm. No intratesticular masses or evidence of testicular torsion. Both epididymides are normal in size and appearance. There is a complex heterogenous fluid collection lateral to the right scrotal sac region measuring 4. 7 x 3.1 cm. This may represent hematoma or abscess. IMPRESSION: No intratesticular mass or testicular torsion findings. Complex fluid collection (4.7 x 3.1 cm) lateral to the right scrotal sac may represent hematoma or ab scess.
[2021-10-23 22:13] LABS: Bilirubin Direct 0.3 mg/dL (0-0.2); Bilirubin Total 0.5 mg/dL (0.2-1.0); Magnesium 1.8 mg/dL (1.8-2.4); Protein, Total 8.3 g/dL (6.4-8.2); Troponin High Sensitivity 14.1 pg/mL (<58.9)
[2021-10-23 22:19] LABS: Potassium 2.8 mmol/L (3.5-5.1)
[2021-10-23] MEDS ORDERED: FUROSEMIDE 40 MG/4 ML VIAL ONE (22:19)
[2021-10-23] MEDS ORDERED: POTASSIUM CL SA 10 MEQ TAB PO ONE (22:52)
[2021-10-23] MEDS ORDERED: KCL 20 MEQ/100 mL IVPB 100 ML IV ONE (22:53)
[2021-10-23] MEDS ORDERED: HEPARIN/D5W 25,000 UNIT/500 ML BAG IV ONE (23:34)
[2021-10-23] MEDS ORDERED: HEPARIN 5000 UNIT/ML 1 ML VIAL ONE (23:34)
--- NOTE | 2021-10-24 00:21 | P.HP ---
Certification for Inpatient Patient admitted to: Inpatient With expected LOS: >2 Midnights Patient will require the following post-hospital care: None Practitioner: I am a practitioner with admitting privileges, knowledge of patient current condition, hospital course, and medical plan of care. Services: Services provided to patient in accordance with Admission requirements found in Title 42 Section 412.3 of the Code of Federal Regulations <Davin Yeh - Last Filed: 10/24/21 00:12> Patient History Date of Service: 10/24/21 History of Present Illness: 61-year-old male with history of aortic valve replacement on chronic anticoagulation with Coumadin, depression presents emergency department for scrotal swelling/bleeding. He reports he noticed about 2 days ago that he had some swelling/irritation scrotum he saw his primary care doctor who performed a bedside incision and drainage of the suspected abscess to the left side of his scrotum. Throughout the day today he had bleeding from the site and worsening swelling he was evaluated here in the emergency department and his labs were significant for hemoglobin 7.8 INR 1.51 sodium 134 potassium 2.8 chloride 97 lactic acid two-point. Scrotal ultrasound shows complex fluid collection 4.7 x 3.1 cm lateral to the right scrotal sac represent hematoma or abscess. Only sirs criteria met is for tachycardia with heart rate greater than 90 patient does not meet sepsis criteria at this time ED provider discussed case with urology who will see patient in the morning. Continue broad-spectrum antibiotics n.p.o. at midnight, patient started on heparin drip INR as his INR was subtherapeutic and he may have a procedure tomorrow. Will admit for further evaluation and management. 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 - Family History Family History: Reviewed- Non-Contributory - Social History Smoking Status: Current every day smoker Counseled patient to stop smoking for: less than 10 minutes Smoking therapy provided: Yes Place of Residence: Home <Davin Yeh - Last Filed: 10/24/21 00:12> Date of Service: 10/24/21 <Chad Garcia - Last Filed: 10/24/21 21:13> Allergies codeine Adverse Reaction (Verified 03/25/18 10:48) Itching Home Medications: Sertraline [Zoloft] 50 mg PO DAILY 10/24/21 Warfarin Sodium [Coumadin] 10 mg PO DAILY 5 PM 10/24/21 Review of Systems 10-point ROS is otherwise unremarkable Genitourinary: Other (scrotal pain, swelling, mild bleeding/drainage.) <Davin Yeh - Last Filed: 10/24/21 00:12> Physical Examination - Physical Exam General: Alert, In no apparent distress, Oriented x3 HEENT: Atraumatic, PERRLA, Mucous membr. moist/pink, EOMI, Sclerae nonicteric Neck: Supple, 2+ carotid pulse no bruit, No LAD, Without JVD or thyroid abnormality Respiratory: Clear to auscultation bilaterally, Normal air movement Cardiovascular: Regular rate/rhythm, Normal S1 S2 Gastrointestinal: Normal bowel sounds, No tenderness Musculoskeletal: No tenderness Integumentary: No rashes Neurological: Normal gait, Normal speech, Normal strength at 5/5 x4 extr, Normal tone, Normal affect Lymphatics: No axilla or inguinal lymphadenopathy External genitalia: Edema - Studies Laboratory Data (last 24 hrs) 10/23/21 21:10: APTT 39.6 H 10/23/21 21:10: PT 16.7 H, INR 1.51 10/23/21 21:10: WBC 7.80, Hgb 14.4, Hct 42.5, Plt Count 167 10/23/21 21:10: Sodium 134 L, Potassium 2.8 L*, BUN 14, Creatinine 0.97, Glucose 141 H, Magnesium 1.8, Total Bilirubin 0.5, AST 42 H, ALT 34, Alkaline Phosphatase 87 <Davin Yeh - Last Filed: 10/24/21 00:12> - Studies Laboratory Data (last 24 hrs) 10/23/21 21:10: APTT 39.6 H 10/23/21 21:10: PT 16.7 H, INR 1.51 10/23/21 21:10: WBC 7.80, Hgb 14.4, Hct 42.5, Plt Count 167 10/23/21 21:10: Sodium 134 L, Potassium 2.8 L*, BUN 14, Creatinine 0.97, Glucose 141 H, Magnesium 1.8, Total Bilirubin 0.5, AST 42 H, ALT 34, Alkaline Phosphatase 87 Microbiology Data (last 24 hrs): 10/23/21 21:21 Wound - Skin Gram Stain - Final <Chad Garcia - Last Filed: 10/24/21 21:13> Male Exam - Male Exam Scrotum: Edema, Tenderness, Other ( erythema/induration/cellulitic changes noted ) Testicular exam: Normal size, Non-tender <Davin Yeh - Last Filed: 10/24/21 00:12> Assessment and Plan - Plan Assessment: Scrotal abscess versus hematoma History of mechanical aortic valve replacement on chronic anticoagulationwarfarin with subtherapeutic INR Depression Hypokalemia Plan: Scrotal abscess versus hematoma: Urology consulted, ED provider discussed case prior to admission. Given vanc/levaquin, will continue. NPO after midnight, appreciate further input from urology. Only SIRS criteria met is HR> 90. no sepsis at this time. History of mechanical aortic valve replacement on chronic anticoagulation warfarin with subtherapeutic INR: Pt reports he had been holding his warfarin in anticipation of I&D on scrotum and is generally not very compliant having his INR followed. He was started on heparin drip in ED as he may have intervention performed on suspected scrotal abscess in the morning. Will need to continue warfarin once cleared by urology and possible bridge with lovenox. Depression: Continue home meds. Hypokalemia: Replaced in ED, protocol in place. Will check mag as well. DVT PPX:Heparin drip Code status:Full. Discharge Plan: Home Plan to discharge in: 48 Hours - Advance Directives Does patient have a Living Will: No Does patient have a Durable POA for Healthcare: No - Code Status/Comfort Care Code Status Assessed: Yes (Full code) Critical Care: No Time Spent Managing Pts Care (In Minutes): 70 <Davin Yeh - Last Filed: 10/24/21 00:12> - Plan Plan of care reviewed as noted above. Patient seen and examined on rounds this morning. Agree with plan of care as noted above. Urology consulted in ED, possible bedside I&D <Chad Garcia - Last Filed: 10/24/21 21:13>
[2021-10-24] MEDS ORDERED: NICOTINE 21 MG/PAT TD ONE (00:26)
[2021-10-24 00:44] LABS: SARS-CoV-2 Antigen Rapid Res Negative (Negative)
[2021-10-24] MEDS ORDERED: ONDANSETRON 4 MG/2 ML VIAL IV PRN (01:08)
[2021-10-24] MEDS ORDERED: VANCOMYCIN 1 GM in NA CHLORIDE 0.9% 250 ML IVPB SCH (01:08)
[2021-10-24] MEDS ORDERED: HEPARIN/D5W 25,000 UNIT/500 ML BAG IV SCH (03:00)
[2021-10-24] MEDS ORDERED: VANCOMYCIN 0.5 GM in NA CHLORIDE 0.9% 100 ML IVPB ONE (03:00)
[2021-10-24 05:14] LABS: Absolute Lymphocytes (CBC) 1.2 K/uL (0.7-4.9); Hematocrit 38.3 % (39.6-49.0); MCV 104.5 fL (80-100); MPV 8.1 fL (7.6-11.3); RBC Red Blood Cell Count 3.66 M/uL (4.33-5.43)
[2021-10-24 05:16] LABS: Protime INR 1.68
[2021-10-24 05:38] LABS: Albumin 2.7 g/dL (3.4-5.0); Bilirubin Total 0.6 mg/dL (0.2-1.0); Protein, Total 7.6 g/dL (6.4-8.2)
[2021-10-24 05:41] LABS: Urine Bacteria <20 /HPF (<20); Urine Bilirubin NEGATIVE (Negative); Urine Blood Negative (Negative); Urine Clarity Clear (Clear); Urine Color Light-Yellow (Yellow); Urine Glucose NEGATIVE (Negative); Urine Mucus Slight /HPF (None Seen); Urine Protein NEGATIVE (Negative); Urine RBC <5 /HPF (None Seen); Urine Urobilinogen Normal (Normal)
[2021-10-24 05:42] LABS: Magnesium 1.6 mg/dL (1.8-2.4); Potassium 3.7 mmol/L (3.5-5.1)
--- NOTE | 2021-10-24 07:19 | EKG ---
Test Date: 2021-10-23 Test Time: 22:14:13 Hand Tube Winder: DWAIN MEASUREMENT RESULTS: Intervals: Rate: 101 AR: QRSD: 100 QT: 360 QTc: 466 Modale: P: AR: QRS: 85 T: 77 INTERPRETIVE STATEMENTS: Undetermined rhythm Otherwise normal ECG Compared to ECG 02/24/2014 01:37:59 Sinus tachycardia no longer present Right-axis deviation no longer present Electronically Signed On 10-24-21 07:18:17 CDT by Kyaw Taylor
[2021-10-24] MEDS ORDERED: MAGNESIUM SULFATE 1 gm IVPB 1 GM/100 ML BAG IV ONE (11:00)
[2021-10-24] MEDS ORDERED: LIDOCAINE 100 MG/5 ML SYRINGE IV ONE ×2 (16:44→18:04)
[2021-10-24 20:20] VITALS: TEMP 97.8
--- NOTE | 2021-10-24 20:21 | CON ---
Reason For Consultation: Scrotal abscess. History Of Present Illness: Mr. Carcamo is a 61-year-old gentleman with hypertension and aortic valve replacement, on Coumadin, who presented to the emergency department, having been seen by his outpatient primary care physician who incised a right hemiscrotal abscess. He did evacuate a significant quantity of purulent material, but because the patient was on Coumadin and did have significant bleeding from that site, he presented to the emergency department for evaluation. He has since been admitted and is being managed with antimicrobials and I was requested to evaluate and potentially manage the abscess. Physical Examination: General: The patient was well appearing and in no acute distress. He was alert, awake, and oriented x3. Lungs: There was no dyspnea or sign of respiratory distress. Abdomen: Soft and nontender. Genitalia: Circumcised without lesion, orthotopic meatus patent. The testes were bilaterally descended without mass and nontender. The right hemiscrotum was significantly indurated in the lateral intertriginous region and that induration did extend inferiorly from the superolateral surface of the right scrotum down into the perineal region. There was no overlying significant erythema and no crepitus. The cavity could be palpated in the region of the scrotum where it joined the junction with the upper thigh. As a result, while a puncture had been made in the central portion of the abscess cavity within the scrotum laterally by his PCP, the hole was then insufficiently large to completely evacuate and prevent the abscess from reforming. As a result, I counseled the patient that incision and widening of the hole to completely evacuate and drain the abscess was required with packing and/or sitz baths to allow it to heal without continued infection. I did caution the patient that I had a strong suspicion that the reason that this abscess developed was secondary to a fistula in ano. As a result, I strongly recommended he consult with a colorectal surgeon for that evaluation. He noted that he had had a previous abscess on the opposite side and had had a previous anal fistula that was evaluated by a colorectal surgeon. Procedure Note: Incision and drainage of right hemiscrotal abscess with irrigation and packing. The patient was supine in the inpatient bed and absorbent drapery was placed beneath his buttocks. Betadine was used to prep the entirety of the scrotum and his genitalia as well as the right inner thigh and a sterile drapery was placed around it. Approximately 10 cc of 2% lidocaine plain was instilled subcutaneously over the region of the predominance of the abscess in the right lateral hemiscrotum, and an additional 5 cc was eventually administered. An incision was made horizontally along Joseph lines within the scrotum overlying the abscess cavity approximately 2-3 cm in diameter and was deepened through the subcutaneous tissues. I was able to then insert my fifth digit into the incision and navigated around the entirety of the abscess cavity, which extended down into the perineal region approximately 6-8 cm and superiorly toward the inguinal region approximately 2 or 3 cm. The abscess was additionally about 4 or 5 cm wide beneath the incision. I manipulated the subcutaneous cavity in order to disrupt any septations within the abscess and ensured it was a continuous cavity. I then copiously irrigated the cavity using normal saline and 500 cc of irrigation was performed. I then packed the cavity with two 4 x 4 gauze, opened up and inserted into the incision inferiorly and superiorly leaving a wick hanging out of the incision. The patient tolerated the procedure reasonably well and without complications. Gauze was placed over the wick to allow drainage of the internal components, and the procedure was concluded. Assessment And Recommendations: This is a 61-year-old gentleman with hypertension and aortic valve replacement on Coumadin with a very large perineoscrotal abscess that may indeed be the consequence of a fistula in ano. I strongly recommended he consult with a colorectal surgeon for evaluation of the potential for fistula in ano. He was familiar with the process of sitz baths, as well as packing an abscess cavity and changing the dressings twice a day. He was interested in going home and being discharged today; so I explained that as long as he was comfortable either performing sitz baths twice a day or packing the wound, preferably both, it was reasonable to consider discharge. Since the culture results were not yet back, the determination for suitability for discharge would be at the discretion of the resource analyst admitting him. Likely since the cultures are growing gram- positive cocci in clusters and chains, this is either staphylococcus or streptococcus, and he could reasonably be discharged with Bactrim, if he has no allergies to sulfa, or potentially clindamycin with a gram-negative antimicrobial to ensure adequate coverage. Subsequent followup should also be established in the Urology Clinic with me to evaluate his progress. JALEN/MODL Voice ID: [id number] Report ID: [id number] NICOLE
[2021-10-24] MEDS: MORPHINE 2 MG/ML SYR IV PRN (20:59)
[2021-10-24] MEDS ORDERED: VANCOMYCIN 2 GM in NA CHLORIDE 0.9% 500 ML IVPB SCH (21:00)
[2021-10-24] MEDS ORDERED: Levofloxacin500mg IV 500 MG/100 ML BAG IV SCH (21:00)
[2021-10-24] MEDS ORDERED: HYDROMORPHONE HCL 0.5 MG/0.5 ML INJ IV ONE (22:35)
[2021-10-25] MEDS: MORPHINE 2 MG/ML SYR IV PRN ×2 (01:02→06:31)
[2021-10-25 05:17] LABS: Absolute Lymphocytes (CBC) 1.7 K/uL (0.7-4.9); Hematocrit 41.9 % (39.6-49.0); Lymphocytes % 26.7 % (15.3-44.8); MCV 102.1 fL (80-100); MPV 8.1 fL (7.6-11.3); RBC Red Blood Cell Count 4.11 M/uL (4.33-5.43)
[2021-10-25 05:26] LABS: Protime INR 1.53
[2021-10-25 05:40] LABS: Albumin 2.9 g/dL (3.4-5.0); Bilirubin Total 0.9 mg/dL (0.2-1.0); Magnesium 1.5 mg/dL (1.8-2.4); Potassium 3.5 mmol/L (3.5-5.1); Protein, Total 7.9 g/dL (6.4-8.2)
[2021-10-25 05:49] VITALS: BMI 39.2
[2021-10-25] MEDS ORDERED: Magnesium Sulfate 2gm IVPB 2 G/50 ML BAG IV ONE (05:53)
[2021-10-25] MEDS ORDERED: TRAMADOL HCL 50 MG TAB PO PRN (06:06)
[2021-10-25 08:19] VITALS: BP 176/99
[2021-10-25] MEDS ORDERED: NICOTINE 21 MG/PAT TD SCH (09:00)
--- NOTE | 2021-10-25 09:03 | P.DS ---
Admission Date: 10/24/21 Discharge Date: 10/25/21 Disposition: DC HOME/HOME HEALTH CARE Discharge Condition: FAIR Consultations: UrologyDforeign Reyna Brief History of Present Illness: 61yo M, PMH: AOVR on coumadin, depression Presents to ED for scrotal swelling / bleeding. First notice ~2 days ago and saw his PCP who performed bedside I&D. Continued with some oozing /bleeding with worsening swelling so he presented to the ED. Scrotal ultrasound shows complex fluid collection 4.7 x 3.1 cm lateral to the right scrotal sac represent hematoma or abscess. He was started on broad-spectrum antibiotics admitted to the hospital with a consult for urology. Hospital Course: Problem List Scrotal abscess versus hematoma History of mechanical aortic valve replacement on chronic a nticoagulationwarfarin with subtherapeutic INR Depression Hypokalemia Patient presented with scrotal pain after I&D at PCP's office. U/S revealed possible abscess vs hematoma. Urology - Dr. Reyna, was consulted and performed bedside I&D, probed large cavity, without much purulent drainage. Patient was wanting to be discharged home as early as possible. He was deemed stable for discharge from Urologic perspective with close follow up in Urology office and with a colorectal surgeon. Patient remained afebrile and labs WNL. Pain was tolerable and abscess cavity was packed. There is the possibility of a fistula that lead to the initial infection. For this reason, Dr. Reyna recommends close follow up and further evaluation by a colorectal surgeon. Patient stated he would ensure close follow up and follow instructions / take medications. He was requesting discharge, and I felt this was reasonable. Continue packing the area twice daily. Discharged with Bactrim for 2 weeks. Sitz baths twice daily with dressing changes. Pain medication sent for dressing changes. Follow up: PCP within 3-5 days. Urology - Dr. Reyna, ~1 week Colorectal surgeon - as soon as possible Vital Signs/Physical Exam: Temp Pulse Resp BP Pulse Ox 97.8 F 81 16 176/99 H 97 10/24/21 20:00 10/25/21 08:00 10/25/21 01:02 10/25/21 08:00 10/25/21 01:02 General: Alert, In no apparent distress, Oriented x3 HEENT: Mucous membr. moist/pink, Sclerae nonicteric Neck: Supple, No LAD Respiratory: Clear to auscultation bilaterally, Normal air movement Cardiovascular: Regular rate/rhythm, No murmurs Gastrointestinal: Soft and benign, Non-distended, No tenderness Integumentary: Other (scrotum: R: packing in place, no erythema, +tender) Neurological: Normal speech, Normal strength at 5/5 x4 extr, Normal affect Laboratory Data at Discharge: WBC 6.40 K/uL (4.3-10.9) 10/25/21 05:03 Hgb 14.7 g/dL (13.6-17.9) 10/25/21 05:03 Hct 41.9 % (39.6-49.0) 10/25/21 05:03 Plt Count 148 K/uL (152-406) L 10/25/21 05:03 PT 17.0 SECONDS (9.5-12.5) H 10/25/21 05:03 INR 1.53 10/25/21 05:03 APTT 48.5 SECONDS (24.3-36.9) H 10/25/21 02:32 Sodium 136 mmol/L (136-145) 10/25/21 05:03 Potassium 3.5 mmol/L (3.5-5.1) 10/25/21 05:03 BUN 11 mg/dL (7-18) 10/25/21 05:03 Creatinine 0.78 mg/dL (0.55-1.3) 10/25/21 05:03 Glucose 134 mg/dL (74-106) H 10/25/21 05:03 Magnesium 1.5 mg/dL (1.8-2.4) L 10/25/21 05:03 Total Bilirubin 0.9 mg/dL (0.2-1.0) 10/25/21 05:03 AST 37 U/L (15-37) 10/25/21 05:03 ALT 30 U/L (12-78) 10/25/21 05:03 Alkaline Phosphatase 69 U/L (45-117) 10/25/21 05:03 Home Medications: Sertraline [Zoloft*] 50 mg PO DAILY 10/24/21 Warfarin Sodium [Coumadin*] 10 mg PO DAILY 5 PM 10/24/21 Hydrocodone 5/APAP 325 [Alvin 5/325] 1 tab PO Q6H PRN #15 tab 10/25/21 Smz./Tmp. [Bactrim Ds 800 MG/160 MG] 1 tab PO BID 14 Days #28 tab 10/25/21 New Medications: Smz./Tmp. [Bactrim Ds 800 MG/160 MG] 1 tab PO BID 14 Days #28 tab Hydrocodone 5/APAP 325 [Alvin 5/325] 1 tab PO Q6H PRN #15 tab PRN Reason: Pain Physician Discharge Instructions: PROBLEM: Scrotal Abscess GOAL: Clear understanding of disease process INSTRUCTIONS: Diet: Activity: DME DME: Date Ordered: Name of Company: [employer] Services Needed: None Name of Company: Date or Referral: IMMUNIZATION Influenza Vaccine Indicated: Influenza Vaccine Given: Date Given: Pneumonia Vaccine Indicated: No Pneumonia Vaccine Given: Date Given: Patient presented with scrotal pain after I&D at PCP's office. U/S revealed possible abscess vs hematoma. Urology - Dr. Reyna, was consulted and performed bedside I&D, probed large cavity, without much purulent drainage. Patient was wanting to be discharged home as early as possible. He was deemed stable for discharge from Urologic perspective with close follow up in Urology office and with a colorectal surgeon. Patient remained afebrile and labs WNL. Pain was tolerable and abscess cavity was packed. There is the possibility of a fistula that lead to the initial infection. For this reason, Dr. Reyna recommends close follow up and further evaluation by a colorectal surgeon. Patient stated he would ensure close follow up and follow instructions / take medications. He was requesting discharge, and I felt this was reasonable. Continue packing the area twice daily. Discharged with Bactrim for 2 weeks. Sitz baths twice daily with dressing changes. Pain medication sent for dressing changes. Follow up: PCP within 3-5 days. Urology - Dr. Reyna, ~1 week Colorectal surgeon - as soon as possible Followup: Unknown,U [Primary Care Provider] - Time spent managing pt's care (in minutes): 45
[2021-10-25 10:03] VITALS: O2SAT 95
== END 2021-10-25 10:25 | disposition home health service (06) | DRG 728 ==
LOC: ER 19:44 → ERHOLD 10-24 00:03 → 3RD-ICU 10-24 01:04
PROVIDERS: ADMIT Hospitalist; ATTEND Hospitalist
PROC: 0J9B0ZZ Drainage of Perineum Subcutaneous Tissue and Fascia, Open Approach (ICD-10-PCS; principal; 2021-10-24)
DX: N49.2 Inflammatory disorders of scrotum (principal); E87.6 Hypokalemia; F32.A Depression, unspecified; E66.9 Obesity, unspecified; N50.89 Other specified disorders of the male genital organs; F17.210 Nicotine dependence, cigarettes, uncomplicated; S30.22XA Contusion of scrotum and testes, initial encounter; Z95.2 Presence of prosthetic heart valve; Z60.2 Problems related to living alone; Z68.39 Body mass index [BMI] 39.0-39.9, adult; Z88.5 Allergy status to narcotic agent; Z79.01 Long term (current) use of anticoagulants; Z79.899 Other long term (current) drug therapy; Z20.822 Contact with and (suspected) exposure to COVID-19
CPT/HCPCS: 36415; 71045; 76870; 80048; 80053; 80076; 81001; 83605; 83735; 83880; 84484; 85025; 85610; 85730; 87040; 87070; 87075; 87205; 87811; 93005; 99285; J1170; J1644; J1940; J2270; J3370; J3475; J3480; J7030; J7040; J7050